=== PATIENT | female | born 1955 | race Caucasian/White ===

== ENCOUNTER 2018-02-06 21:12 | Inpatient (IN) | END 2018-02-07 11:05 | disposition left against medical advice (07) | DRG 696 ==

== ENCOUNTER 2018-02-12 21:28 | Inpatient (IN) | END 2018-02-14 17:21 | disposition home or self-care (01) | DRG 690 ==

== ENCOUNTER 2018-07-03 20:41 | Inpatient (IN) | END 2018-07-04 15:10 | disposition home or self-care (01) | DRG 812 ==

== ENCOUNTER 2018-08-01 22:01 | Inpatient (IN) | END 2018-08-03 13:33 | disposition home or self-care (01) | DRG 687 ==

== ENCOUNTER 2018-09-04 22:37 | Inpatient (IN) | END 2018-09-06 11:20 | disposition home or self-care (01) | DRG 687 ==